=== PATIENT | male | born 1940 | race Caucasian/White ===

== ENCOUNTER 2022-03-16 14:07 | Observation (INO) ==
[2022-03-16 19:02] LABS: Basophils # 0.1 K/mcL (0.0-0.2); Basophils % 0.9 %; Eosinophils # 0.1 K/mcL (0.0-0.6); Eosinophils % 1.4 %; Hematocrit 44.9 % (37.5-50.1); Hemoglobin 14.8 g/dL (12.9-16.9); Immature Granulocytes % 0.7 % (0-4); Lymphocytes # 1.6 K/mcL (0.6-4.6); Lymphocytes % 18.9 %; Mean Corpuscular Hemoglobin 31.4 pg (28.0-33.3); Mean Corpuscular Volume 95.3 fL (83.0-100.0); Mean Platelet Volume 11.1 fL (9.4-12.4); Monocytes # 0.7 K/mcL (0.0-1.3); Monocytes % 7.6 %; Neutrophils # 6.1 K/mcL (1.6-8.9); Platelet Count 255 K/mcL (140-400); Red Blood Count 4.71 M/mcL (4.19-5.50); Red Cell Distribution Width 14.1 % (11.5-14.5); Segmented Neutrophils % 70.5 %; White Blood Count 8.6 K/mcL (4.3-11.1)
[2022-03-16] MEDS ORDERED: 0.9 % Sodium Chloride 1,000 ML IVC ONE (19:03)
[2022-03-16 19:11] LABS: Calcium 9.2 mg/dL (8.6-10.3); Potassium 3.4 mEq/L (3.5-5.1)
[2022-03-16 19:38] LABS: Albumin 3.9 g/dL (3.5-5.7); Albumin/Globulin Ratio 1.8 (1.1-2.2); Bilirubin,Direct 0.1 mg/dL (0.0-0.2); Bilirubin,Indirect 0.5 mg/dL (0.0-1.0); Bilirubin,Total 0.6 mg/dL (0.3-1.0); Globulin 2.2 g/dL (2.4-3.5); Total Protein 6.1 g/dL (6.4-8.9)
[2022-03-16 19:40] LABS: INR 1.1; Prothrombin Time 12.3 Seconds (9.4-12.1)
[2022-03-16 19:42] LABS: Activated Partial Thrombo Time 30.4 Seconds (26.0-36.0)
[2022-03-16] MEDS ORDERED: Isovue-370 500 ML BOTTLE IVP ONE (20:33)
[2022-03-16 22:22] LABS: Hematocrit 39.3 % (37.5-50.1); Hemoglobin 12.9 g/dL (12.9-16.9); Mean Corpuscular HGB Conc 32.8 g/dL (31.6-35.5); Mean Corpuscular Hemoglobin 31.3 pg (28.0-33.3); Mean Corpuscular Volume 95.4 fL (83.0-100.0); Platelet Count 205 K/mcL (140-400); Red Blood Count 4.12 M/mcL (4.19-5.50); White Blood Count 6.9 K/mcL (4.3-11.1)
[2022-03-16] MEDS ORDERED: Pantoprazole 40 MG VIAL IVP ONE (23:24)
[2022-03-16] MEDS ORDERED: 0.9 % Sodium Chloride 1,000 ML IVC SCH (23:45)
[2022-03-16] MEDS ORDERED: Naloxone 0.4 MG/ML INJ IVP PRN (23:51)
[2022-03-16] MEDS ORDERED: Ondansetron 4 MG/2 ML VIAL IVP PRN (23:51)
[2022-03-17] MEDS ORDERED: SODIUM CHLORIDE/NAHCO3/KCL/PEG 4,000 ML SOLN.RECON PO ONE (00:07)
[2022-03-17] MEDS ORDERED: Dextrose 4 GM Chewable Tablets PO PRN ×2 (00:21)
[2022-03-17] MEDS ORDERED: *HR* Dextrose 50 % in Water (Syg) 50 ML SYRINGE IVP PRN (00:21)
[2022-03-17] MEDS ORDERED: D5% in Water 1,000 ML IVC PRN (00:21)
[2022-03-17 06:00] LABS: Hematocrit 44.8 % (37.5-50.1); Hemoglobin 14.2 g/dL (12.9-16.9); Mean Corpuscular HGB Conc 31.7 g/dL (31.6-35.5); Mean Corpuscular Hemoglobin 30.5 pg (28.0-33.3); Mean Corpuscular Volume 96.3 fL (83.0-100.0); Mean Platelet Volume 11.8 fL (9.4-12.4); Platelet Count 235 K/mcL (140-400); Red Blood Count 4.65 M/mcL (4.19-5.50); Red Cell Distribution Width 14.2 % (11.5-14.5); White Blood Count 7.3 K/mcL (4.3-11.1)
[2022-03-17 06:07] LABS: Prothrombin Time 11.4 Seconds (9.4-12.1)
[2022-03-17 06:09] LABS: Activated Partial Thrombo Time 26.7 Seconds (26.0-36.0)
[2022-03-17 06:14] LABS: BUN/Creatinine Ratio 18 (6-26); Blood Urea Nitrogen 22 mg/dL (8-23); Calcium 8.7 mg/dL (8.6-10.3); Carbon Dioxide 28 mEq/L (23-29); Chloride 109 mEq/L (98-107); Glucose 96 mg/dL (70-105); Osmolality,Calculated 299 (280-300); Potassium 3.9 mEq/L (3.5-5.1); Sodium 143 mEq/L (136-145); eGFR For African Americans > 60 (> 60); eGFR For Non-African Americans 58 (> 60)
[2022-03-17] MEDS: Insulin LISPRO 300 UNITS/3 ML VIAL SUBQ SCH ×2 (06:48→14:19)
[2022-03-17] MEDS ORDERED: Lidocaine -MPF 2% 2 ML VIAL ONE (11:37)
[2022-03-17 15:47] VITALS: BP 148/88; PULSE 84; TEMP 97.4; O2SAT 95
[2022-03-17] MEDS ORDERED: Pantoprazole 40 MG VIAL IVP SCH (18:00)
== END 2022-03-17 17:30 | disposition home or self-care (01) ==
LOC: 3ANU 14:07 → EMEROOARM 14:07 → SUATTDRO 23:31 → 3ANU 23:59
PROVIDERS: ADMIT Student in an Organized Health Care Education/Training Program; ATTEND Family Medicine